=== PATIENT | female | born 1955 | race Caucasian/White ===

== ENCOUNTER 2017-08-22 09:38 | Day surgery (SDC) | payer OTHER ==
[~2017-08-22 09:38] MED LIST: HYDROmorphone HCL 2 MG/ML VIAL IV PRN; ONDANSETRON HCL/PF 2 MG/ML VIAL IV PRN; RINGER'S SOLUTION,LACTATED 1,000 ML IV PRN; ceFAZolin SODIUM 1 GM VIAL IV PRN; oxyCODONE HCL/ACETAMINOPHEN 1 TAB TABLET PO PRN
[2017-08-22] MEDS ORDERED: RINGER'S SOLUTION,LACTATED 1,000 ML IV ONE ×3 (10:27→16:24)
--- NOTE | 2017-08-22 14:55 | OR ---
Anesthesia Procedure Note - Anesthesia Procedure Note Date of Service: 08/22/17 Narrative: Vital Signs - Last Taken Temp 36.0 C L 08/22/17 14:48 Pulse 103 H 08/22/17 14:48 Resp 17 08/22/17 14:48 BP 130/86 08/22/17 14:48 Pulse Ox 98 08/22/17 14:48 O2 Oxygen Delivery Method Room Air 08/22/17 14:54 ANESTHESIA PROCEDURE NOTE Date of Procedure: 08/22/2017. Time of procedure: 1235. Performed by: Mariano Pickard CRNA Material Distributor: None. Preprocedure diagnosis: Left fractured proximal humerus. Post procedure diagnosis: Same. Procedure: Left ultrasound guided interacalene nerve block for postoperative analgesia. Indications: The patient is a 61 -year-old female, who requests a left ultrasound guided interscalene nerve block for postoperative analgesia related to ORIF of left proximal humerus. Findings: See below. Details of the procedure: The tissue over the intended target site was cleansed with ChloraPrep. 1 ml Lidocaine 1 % was infiltrated to the skin and subcutaneous tissue. Under sterile technique and ultrasound guidance a 22-gauge block needle was inserted to the left braclial plexus nerve bundle between the anterior scalene and the middle scalene muscles. 40 mL's of 0.5% bupivacaine plus epinephrine 1:200,000 was injected after negative aspiration for blood. Needle tip and spread of local anesthetic around the brachial plexus was observed throughout the injection with realtime ultrasound visualization. The needle was removed intact. No complications were noted. The images were retained in the hospital medical database . EBL: Minimal. Fluids: N/A. Specimen: N/A. Post procedure condition: The patient tolerated the procedure well. No complications were noted. Thank you for this consultation. Mariano Pickard CRNA
[2017-08-22] MEDS ORDERED: ONDANSETRON HCL/PF 2 MG/ML VIAL IV PRN (14:56)
[2017-08-22] MEDS ORDERED: NALOXONE HCL 0.4 MG/ML VIAL IV PRN (14:56)
[2017-08-22] MEDS ORDERED: HYDROmorphone HCL 1 MG/ML DISP.SYRIN IV PRN (14:56)
[2017-08-22] MEDS ORDERED: diphenhydrAMINE HCL 50 MG/ML VIAL IV PRN (14:56)
[2017-08-22 17:58] VITALS: BP 130/83
== END 2017-08-22 09:39 | disposition home or self-care (01) ==
LOC: AMB 09:38
PROVIDERS: ATTEND Orthopaedic Surgery
PROC: 3E0T3BZ Introduction of Anesthetic Agent into Peripheral Nerves and Plexi, Percutaneous Approach (ICD-10-PCS; 2017-08-22)
PROC: 0PSD04Z Reposition Left Humeral Head with Internal Fixation Device, Open Approach (ICD-10-PCS; principal; 2017-08-22 12:15)
DX: S42.292A Other displaced fracture of upper end of left humerus, initial encounter for closed fracture (principal); Z68.26 Body mass index [BMI] 26.0-26.9, adult
CPT/HCPCS: 23615; 64415; 73030; 76000; C1713; J2405